=== PATIENT | female | born 1970 | race Caucasian/White ===

== ENCOUNTER 2016-11-29 08:27 | Emergency (ER) | payer BC ==
[~2016-11-29] VITALS: Ht 172.7 cm; Wt 88.5 kg
[~2016-11-29 08:27] MED LIST: CYTOMEL PO; LEVO150T PO
[2016-11-29 08:41] VITALS: BP 114/87; PULSE 81; RESP 17; TEMP 97.1; O2SAT 99
--- NOTE | 2016-11-29 08:46 | NUR ---
Patient triaged and placed in waiting room. VSS and patient appears in no acute distress at this time. Accompanied by self, awaiting available bed, and MD notified of need for MSE.
--- NOTE | 2016-11-29 09:50 | NUR ---
Ambulatory to bed 7, placed in gown for evaluation
--- NOTE | 2016-11-29 10:09 | NUR ---
Dr. Lopez at bedside for evaluation
[2016-11-29 10:30] VITALS: BP 122/82; PULSE 76; RESP 20; TEMP 97.1; O2SAT 100
[2016-11-29] MEDS ORDERED: ALBUTEROL SULFATE 0.083% 2.5 MG/3 ML VIAL.NEB INH ONE (10:30)
--- NOTE | 2016-11-29 10:30 | NUR ---
Patient given written and verbal discharge instructions and verbalizes understanding. Given copies of tests performed in ER. Patient in stable condition. ID arm band removed. Rx of Promethizine with codeine, Augmentin, and Albuterol given. Patient educated on pain management and to follow up with PMD. Pain Scale 0/10. Opportunity for questions provided and answered.
== END 2016-11-29 10:30 | disposition home or self-care (01) ==
LOC: SED 08:29
DX: J40 Bronchitis, not specified as acute or chronic (principal)
CPT/HCPCS: 94640; 99283